=== PATIENT | male | born 1955 | race Caucasian/White ===

== ENCOUNTER → 2018-04-05 | Outpatient (CLI) | payer OTHER ==
[~2018-04-05] VITALS: Ht 172.7 cm; Wt 76.2 kg
[~2018-04-05] MED LIST: AMLODIPINE BESYL5 MG PO; ATORVASTATIN CA80 MG PO; ENDOCET 10-3251 EACH PO; KEPPRA500 MG PO; LISINOPRIL10 MG PO; STOOL SOFTENER100 MG PO
== END | disposition home or self-care (01) ==
LOC: AMB 13:49
DX: D12.5 Benign neoplasm of sigmoid colon (principal); D12.2 Benign neoplasm of ascending colon; K64.8 Other hemorrhoids; K57.30 Diverticulosis of large intestine without perforation or abscess without bleeding; Z80.0 Family history of malignant neoplasm of digestive organs; K59.00 Constipation, unspecified; G89.29 Other chronic pain; Z79.891 Long term (current) use of opiate analgesic; G40.909 Epilepsy, unspecified, not intractable, without status epilepticus; Z72.0 Tobacco use
CPT/HCPCS: 88305; 93005